=== PATIENT | female | born 1955 | race African-American/Black ===

== ENCOUNTER → 2016-05-16 | Outpatient (CLI) | payer OTHER ==
[~2016-05-16] MED LIST: LEVA500T PO; LORA1TAB PO; METR500I3 PO; PRIN20TA2 PO; PROT40TA PO; URSO300 PO; VERA120T3 PO
[2016-05-16 07:04] LABS: HEMATOCRIT 37.7 % (35.0-46.0); MEAN CELL VOLUME 80.3 FL (80.0-100.0); MEAN CORPUSCULAR HEMOGLOBIN 25.7 PG (27.0-34.0); PLATELET COUNT 213 TH/MM3 (150-450); RED CELL DISTRIBUTION WIDTH 13.2 % (11.6-17.2); REVIEW FLAG FINAL; WHITE BLOOD COUNT 8.3 TH/MM3 (4.0-11.0)
[2016-05-16 07:42] LABS: ALKALINE PHOSPHATASE 74 U/L (45-117); ALT (GPT) 27 U/L (10-53); ANION GAP 8 MEQ/L (5-15); AST (GOT) 16 U/L (15-37); BICARBONATE 26.2 MEQ/L (21.0-32.0); BLOOD UREA NITROGEN 15 MG/DL (7-18); CHLORIDE 105 MEQ/L (98-107); GLOMERULAR FILTRATION RATE 79 ML/MIN (>89); GLUCOSE,FASTING 116 MG/DL (74-99); HDL CHOLESTEROL 43.4 MG/DL (40.0-60.0); LDL CHOLESTEROL 79 MG/DL (0-99); SODIUM (NA) 139 MEQ/L (136-145); THYROXINE (T4) 9.3 MCG/DL (4.8-13.9); TOTAL BILIRUBIN ADULT 0.3 MG/DL (0.2-1.0)
[2016-05-16 08:08] LABS: BLOOD, URINE NEG (NEG); GLUCOSE,URINE NEG (NEG); KETONE, URINE NEG (NEG); NITRITE,URINE NEG (NEG); SQUAMOUS EPITHELIAL CELL URINE <1 /hpf (0-5); URINE COLOR LIGHT-YELLOW (YELLW/STRAW)
[2016-05-16 16:24] LABS: HEMOGLOBIN A1b 2.2 %; HEMOGLOBIN Ao 83.4 %
== END ==
LOC: CLAB 06:43
PROVIDERS: ATTEND Internal Medicine
DX: Z00.00 Encounter for general adult medical examination without abnormal findings (principal)
CPT/HCPCS: 36415; 80053; 80061; 81001; 82306; 83036; 84436; 84443; 85027

== ENCOUNTER → 2016-10-10 | Outpatient (CLI) | payer OTHER ==
[2016-10-10 09:55] LABS: MEAN CELL VOLUME 80.4 FL (80.0-100.0); MEAN CORPUSCULAR HEMOGLOBIN 26.3 PG (27.0-34.0); MEAN CORPUSCULAR HGB CONC 32.7 % (32.0-36.0); PLATELET COUNT 207 TH/MM3 (150-450); RED BLOOD COUNT 4.85 MIL/MM3 (4.00-5.30); RED CELL DISTRIBUTION WIDTH 13.1 % (11.6-17.2); REVIEW FLAG FINAL; WHITE BLOOD COUNT 8.9 TH/MM3 (4.0-11.0)
[2016-10-10 10:03] LABS: BLOOD, URINE NEG (NEG); GLUCOSE,URINE NEG (NEG); KETONE, URINE NEG (NEG); NITRITE,URINE NEG (NEG); URINE COLOR YELLOW (YELLW/STRAW)
[2016-10-10 10:19] LABS: MICRO ALBUMIN RANDOM URINE RAW 8.9 MG/L (0.0-30.0)
[2016-10-10 10:28] LABS: ANION GAP 12 MEQ/L (5-15); AST (GOT) 18 U/L (15-37); BICARBONATE 26.3 MEQ/L (21.0-32.0); BLOOD UREA NITROGEN 13 MG/DL (7-18); CHLORIDE 103 MEQ/L (98-107); GLOMERULAR FILTRATION RATE 72 ML/MIN (>89); GLUCOSE,FASTING 108 MG/DL (74-99); SODIUM (NA) 141 MEQ/L (136-145)
[2016-10-10 10:54] LABS: ALKALINE PHOSPHATASE 77 U/L (45-117); ALT (GPT) 28 U/L (10-53); HDL CHOLESTEROL 47.7 MG/DL (40.0-60.0); LDL CHOLESTEROL 80 MG/DL (0-99); THYROXINE (T4) 8.5 MCG/DL (4.8-13.9); TOTAL BILIRUBIN ADULT 0.5 MG/DL (0.2-1.0)
[2016-10-10 12:06] LABS: HEMOGLOBIN A1a 1.1 %; HEMOGLOBIN A1b 2.2 %; HEMOGLOBIN Ao 83.9 %; HEMOGLOBIN P3 3.8 %
== END ==
LOC: CLAB 06:00
DX: I10 Essential (primary) hypertension (principal); E11.9 Type 2 diabetes mellitus without complications; E78.5 Hyperlipidemia, unspecified; Z79.899 Other long term (current) drug therapy; D64.9 Anemia, unspecified; M81.8 Other osteoporosis without current pathological fracture
CPT/HCPCS: 36415; 80053; 80061; 81001; 82043; 82306; 82607; 82746; 83036; 84436; 84443; 85027